=== PATIENT | female | born 1985 | race Hispanic/Latino ===

== ENCOUNTER 2018-11-30 00:46 | Emergency (ER) | payer OTHER ==
[2018-11-30 00:53] VITALS: BMI 37.3
[2018-11-30] MEDS ORDERED: Albuterol-Ipratrop 3 mg / 0.5 (3 ml) UD ONE (00:53)
[2018-11-30] MEDS ORDERED: Sodium Chloride 0.9% 500 ML IV STA (01:01)
--- NOTE | 2018-11-30 01:09 | ED PDOC ---
Arrival/HPI - General Chief Complaint: Respiratory Distress Time Seen by Provider: 11/30/18 00:50 Historian: Patient - History of Present Illness Narrative History of Present Illness (Text): 11/30/18 01:13 A 32 year old female, whose past medical history includes asthma, who is accompanied by family, presents to the emergency department complaining of wheezing, shortness of breath, and productive cough. Patient reports she has been experiencing these symptoms for the past 5 days, and today became worse. States she was seen in [place], [place] for similar complaint and Chest X-Ray was clear. She was told she could be admitted however she decided against it. Also, patient mentions these symptoms are worse than usual asthma exacerbation. She notes when experiencing asthma, she does not wheeze, only coughs. Patient denies any fever, sputum, or any other complaints at this time. PMD: Located in [place], [place] Time/Duration: < week (5 days, today worse) Symptom Onset: Gradual Symptom Course: Worsening Past Medical History - Provider Review Nursing Documentation Reviewed: Yes - Infectious Disease Hx of Infectious Diseases: None - Cardiac Hx Cardiac Disorders: No - Pulmonary Hx Respiratory Disorders: Yes Hx Asthma: Yes - Psychiatric Hx Substance Use: No Family/Social History - Physician Review Nursing Documentation Reviewed: Yes Family/Social History: No Known Family HX Smoking Status: Never Smoked Hx Alcohol Use: No Hx Substance Use: No Allergies/Home Meds Allergies/Adverse Reactions: Allergies erythromycin base Allergy (Verified 11/30/18 00:54) SHORTNESS OF BREATH peanut Allergy (Verified 11/30/18 00:54) SHORTNESS OF BREATH Sulfa (Sulfonamide Antibiotics) Allergy (Verified 11/30/18 00:53) SHORTNESS OF BREATH Home Medications: Home Meds Medication Instructions Recorded Confirmed Albuterol HFA [Ventolin HFA 90 2 puff INH DAILY PRN 11/30/18 11/30/18 mcg/actuation (8 g)] Levothyroxine [Synthroid] 75 mcg PO DAILY 11/30/18 11/30/18 Venlafaxine [Effexor XR] 150 mg PO DAILY 11/30/18 11/30/18 Review of Systems - Physician Review All systems were reviewed & negative as marked: Yes - Review of Systems Constitutional: absent: Fevers Respiratory: SOB, Cough, Wheezing. absent: Sputum Physical Exam - Physical Exam Narrative Physical Exam (Text): Gen: VS reviewed, alert, well developed, well nourished, nontoxic, mild distress Eye: EOMI, PERRL ENT: normal pharynx. Neck: no JVD, supple, no adenopathy CV: tachycardic, regular rhythm, no rubs,no murmur, S1, S2 Pulm: no distress, clear to auscultation, no wheeze, no rhonchi, breath sounds equal, no rales; tachypneic Abd: soft, nontender, no guarding, no rebound, no rigidity Ext: no edema Skin: good color, no rash, no cyanosis Psych: responds appropriately to questions, normal affect Neuro: oriented x3, CN2-12 intact grossly, motor intact, sensation intact Vital Signs Reviewed: Yes Vital Signs Pulse Resp BP Pulse Ox 11/30/18 00:55 106 H 24 95/65 L 100 Blood Pressure: Normal Pulse: Tachycardic Respiratory Rate: Tachypneic Appearance: Positive for: Well-Appearing, Non-Toxic, Comfortable Pain Distress: None Mental Status: Positive for: Alert and Oriented X 3 Medical Decision Making ED Course and Treatment: 11/30/18 01:16 Impression: 32 year old female with shortness of breath, wheezing, and productive cough. Physical exam shows she is tachycardic, tachypneic; otherwise no other acute findings on examination. Plan: EKG IV Fluids Labs POC Urine Test Reassess and disposition Progress Notes: 11/30/18 05:57 AMA: ADMIT NEEDED The patient refuses admission and wishes to leave the Emergency Department against my medical advice. Patient was told that admission to the hospital is necessary and a full explanation of the reasons why was given, and understood by patient. The risks of leaving were explained and include worsening of condition, and permanent disability and from an undiagnosed or untreated condition. The patient accepts these risks, and is in my judgement is competent and capable of understanding the clinical situation and my explanation of the risks of leaving. Patient was given the opportunity to ask questions and change mind. The patient was instructed regarding the best care for the present symptoms, and to follow up with primary care doctor as soon as possible, or return to the E mergency Department at any time for continuing care. Plan was to admit the patient for inpt observation for persistent tachycardia and cardiology consultation. - EKG Interpretation EKG Interpretation (Text): ekg my read: nsr at 98 bpm, nml qrs, nml axis, no acute sttw abn laboratory monitor: sinus tach at 115 bpm Interpreted by ED Physician: Yes - Scribe Statement The provider has reviewed the documentation as recorded by the Scribe Keely Brunner All medical record entries made by the Scribe were at my direction and personally dictated by me. I have reviewed the chart and agree that the record accurately reflects my personal performance of the history, physical exam, medical decision making, and the department course for this patient. I have also personally directed, reviewed, and agree with the discharge instructions and disposition. Disposition/Present on Arrival - Present on Arrival Any Indicators Present on Arrival: No History of DVT/PE: No History of Uncontrolled Diabetes: No Urinary Catheter: No History of Decub. Ulcer: No History Surgical Site Infection Following: None - Disposition Have Diagnosis and Disposition been Completed?: Yes Diagnosis: Tachycardia Disposition: AGAINST MEDICAL ADVICE Disposition Time: 01:15 Patient Plan: Discharge Patient Problems: Current Active Problems Problem Status Onset Tachycardia Acute Condition: FAIR Discharge Instructions (ExitCare): Tachycardia Additional Instructions: return for any problems or concerns. follow up with a allied health teacher. Referrals: Siobhan Anguiano MD [Staff Provider] - Follow up with primary [facility] [Outside] - Follow up with primary Forms: [employer] (Pashto)
[2018-11-30 01:24] LABS: VENOUS BLOOD GAS BASE EXCESS 0.5 mmol/L (0.0-2.0); VENOUS BLOOD GAS PO2 50 mm/Hg (30-55); VENOUS BLOOD PH 7.43 (7.32-7.43)
[2018-11-30 01:33] LABS: ALB/GLOB RATIO 1.4 (1.1-1.8); ALBUMIN 4.3 g/dL (3.0-4.8); ALT/SGPT 65 U/L (7-56); AST/SGOT 38 U/L (14-36); BLOOD UREA NITROGEN 16 mg/dL (7-21); CALCIUM 9.2 mg/dL (8.4-10.5); GFR NON-AFRICAN AMERICAN > 60
[2018-11-30 01:45] LABS: B-TYPE NATRIURETIC PEPTIDE 32.4 pg/mL (0-450); TROPONIN I < 0.01 ng/mL
[2018-11-30 01:47] LABS: INR 1.04; PARTIAL THROMBOPLASTIN TIME 30.5 Seconds (26.9-38.3); PROTHROMBIN TIME 11.5 SECONDS (9.4-12.5)
[2018-11-30] MEDS ORDERED: Potassium Chloride 20 mEq ER Tab PO STA (01:55)
[2018-11-30 02:19] LABS: D DIMER < 200 ng/mlDDU (0-243)
[2018-11-30] MEDS ORDERED: Sodium Chloride 0.9% 1,000 ML IV SCH (03:00)
[2018-11-30 03:33] LABS: BASO # 0.03 K/mm3 (0.0-2.0); BASO % 0.2 % (0.0-3.0); EOS # 0.1 (0.0-0.7); EOS % 0.5 % (1.5-5.0); HEMOGLOBIN 12.1 g/dL (12.0-16.0); LYMPH # 6.5 (1.2-3.4); LYMPH % 37.7 % (22.0-35.0); MEAN CELL VOLUME 87.6 fl (80.0-105.0); MEAN CORPUSCULAR HEMOGLOBIN 27.7 pg (25.0-35.0); MEAN CORPUSCULAR HGB CONC 31.6 g/dl (31.0-37.0); MEAN PLATELET VOLUME 10.6 fl (7.0-11.0); MONO # 1.2 (0.1-0.6); MONO % 6.9 % (1.0-6.0); RBC 4.37 10^6/uL (3.5-6.1); RED CELL DISTRIBUTION WIDTH 13.6 % (11.5-14.5); WHITE BLOOD COUNT 17.1 10^3/uL (4.5-11.0)
[2018-11-30 05:11] VITALS: BP 111/69; PULSE 110; RESP 14; O2SAT 98
--- NOTE | 2018-11-30 19:11 | CARD ---
APPROVED REPORT Date of service: 11/30/2018 EKG Measurement Heart [id number] <Conclusion> Normal sinus rhythm with sinus arrhythmia Low voltage QRS Minor NDSTT abnormalities Borderline ECG
== END 2018-11-30 06:00 | disposition left against medical advice (07) ==
LOC: ED 00:46
DX: R00.0 Tachycardia, unspecified (principal)
CPT/HCPCS: 80053; 81025; 82803; 83880; 84484; 85025; 85378; 85610; 85730; 93005; 99285; J7030; J7040